=== PATIENT | female | born 1975 | race Caucasian/White ===

== ENCOUNTER 2022-04-02 15:20 | Emergency (ER) | payer OTHER, MEDICARE, MEDICAID, SELFPAY ==
[2022-04-02] VITALS (23 sets, daily range): BP systolic 96–116; BP diastolic 63–83; PULSE 71–95; RESP 11–19; TEMP 36.6; O2SAT 94–100
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
--- NOTE | ~2022-04-02 | XR_ITS ---
EXAMINATION: XR chest 2V DATE: 04/02/2022 16:11 INDICATION: Chest pain TECHNIQUE: AP and lateral views of the chest are obtained. COMPARISON: None available FINDINGS: The lungs are free of acute opacities. No pleural effusion or pneumothorax. The cardiomedia stinal silhouette is normal. There is mild thoracic spondylosis. Surgical clips in the right upper qu adrant are likely from prior cholecystectomy. IMPRESSION: 1. No acute cardiopulmonary abnormality. Reviewed, dictated and finalized at location A.
--- NOTE | 2022-04-02 15:22 | ECG_ITS ---
Measurements Intervals [place] Rate: 85 P: 48 HI: 165 QRS: 17 QRSD: 90 T: 48 QT: 365 QTc: 435 Interpretive Statements SINUS RHYTHM NO PREVIOUS ECG AVAILABLE FOR COMPARISON Electronically Signed On 04-03-2022 13:31:21 CDT by Analy Goode M.D.
[2022-04-02 15:43] LABS: Basophils Percent Auto 0.3 % (0.2-1.2); Eosinophils Absolute Auto 0.1 K/mm3 (0-0.3); Eosinophils Percent Auto 1.1 % (0-4.4); Hematocrit 35.9 % (37.0-47.0); Hemoglobin 11.9 g/dL (12.0-15.0); Immature Granulocyte Absolute 0.03 K/mm3 (0.00-0.031); Immature Granulocyte Percent A 0.3 % (0-0.5); Lymphocytes Absolute Auto 3.09 K/mm3 (0.9-3.2); Lymphocytes Percent Auto 31.5 % (18.3-44.2); Mean Corpuscular HGB Conc 33.1 g/dl (32-36); Mean Corpuscular Volume 93.5 fl (80-100); Mean Platelet Volume 9.5 fl (7.4-10.4); Monocytes Absolute Auto 0.5 K/mm3 (0.1-0.6); Monocytes Percent Auto 5.4 % (2.6-8.5); Neutrophils Percent Auto 61.4 % (45.5-73.1); Platelet Count Result 268 k/mm3 (150-375); Red Blood Count 3.84 M/mm3 (4.2-5.4); Red Cell Distribution Width 12.9 % (11.5-14.5); White Blood Count 9.8 K/mm3 (4.5-10.0)
[2022-04-02 15:54] LABS: Alanine Aminotransferase 12 U/L (6-35); Albumin Level 4.3 g/dL (3.5-5.1); Alkaline Phosphatase 35 U/L (38-126); Anion Gap 9 mmol/L (8-16); Aspartate Amino Transferase 23 U/L (14-36); Bilirubin,Total 0.4 mg/dL (0.2-1.3); Blood Urea Nitrogen 14 mg/dL (7-17); Calcium 8.8 mg/dL (8.4-10.2); Carbon Dioxide 26 mmol/L (22-30); Chloride 102 mmol/L (98-107); Estimated CRCL calculation 66 ml/min; Estimated Glomerular Filt Rate > 60; Glucose 87 mg/dL (65-110); Lipase 63 U/L (23-300); Potassium 3.7 mmol/L (3.4-5.0); Sodium 137 mmol/L (137-145)
[2022-04-02 15:55] LABS: Partial Thromboplastin Time 28.5 SECONDS (22.3-36.8); Prothrombin Time 12.6 Seconds (11.1-14.7)
[2022-04-02 16:05] LABS: Troponin I < 0.012 ng/mL (0.000-0.034)
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
[2022-04-02] MEDS: HYDROmorphone HCL INJ (*CRX) 1 MG/ML SYR 0.5 MG IV PUSH (16:32)
[2022-04-02 18:59] LABS: Troponin I < 0.012 ng/mL (0.000-0.034)
== END 2022-04-02 20:17 | disposition home or self-care (01) ==
PROVIDERS: Emergency Provider Emergency Medicine
DX: R07.89 Other chest pain (principal); F17.210 Nicotine dependence, cigarettes, uncomplicated; K42.9 Umbilical hernia without obstruction or gangrene; V49.40XA Driver injured in collision with unspecified motor vehicles in traffic accident, initial encounter
CPT/HCPCS: 36415; 71046; 71275; 74174; 80053; 83690; 84484; 85025; 85610; 85730; 93005; 96374; 99284; J1170; Q9967

== ENCOUNTER 2025-04-09 15:42 | Outpatient (CLI) | payer MEDICARE, MEDICAID, SELFPAY ==
--- OUTSIDE RECORDS SUMMARY | 2001-03-07 11:30 | XMS_ITS | Continuity of Care Document ---
Author Organization [facility] Address [address] [place] [address] Phone Care Team Providers Care Host/Hostess Restaurant Name Role Phone Buffy Boo Unavailable Unavailable Advance Directives Directive Yes / No Effective Date File Name No Information Encounters Encounter Description Practice Location Reason(s) For Visit Diagnoses Date Provider Providers Copied on Encounter [facility], [address] [place] [address] [address], [place], [place], [id number], [place] tel:[phone] [address] [facility] No Information [address] , [address], [place], [address], [place]. tel:[phone] Family History Family Member Type Diagnosis Age At Onset No Information Payers Payer name Insurance type Covered green party ID Authoriza tion(s) No Information Social History Type Description Quantity Date Captured Comments Sex Female Smoking Status No Information Chief Complaint And Reason For Visit No Information Reason For Referral Reason For Referral No Information History Of Present Illness Encounter Date Complaint History Of Prese nt Illness No Information Functional Status Date Functional Assessmen t No Information Instructions Date Instruction Additional Infor mation No Information Assessments Type Assessment Date No Information Patient Care Teams Name Effective Dates (start - stop) Status Members No Information
--- NOTE | ~2025-04-09 | XR_ITS ---
XR thoracic spine 2V 04/09/2025 16:21 Indication: Back pain Procedure: 2 views thoracic spine Comparison: No prior studies for comparison. Findings: T1 not well visualized on the lateral view. Normal thoracic alignment. Vertebral body heights are maintained. No paraspinal soft tissue abnormality. Pedicles intact. Surrounding osseous structures are unremarkable. Impression: 1: No significant abnormality of the thoracic spine. Reviewed, dictated and finalized at location O. Impression: 1: No significant abnormality of the thoracic spine.
--- NOTE | ~2025-04-09 | XR_ITS ---
XR_[id number]_CR 04/09/2025 16:21 Indication: Cervical, thoracic and lumbar radiculopathy Procedure: 3 views cervical spine Comparison: No prior studies for comparison. Findings: Vertebral body and disc heights are preserved. No prevertebral soft tissue abnormality. Lung apices are normal. Odontoid process is normal. No fracture, subluxation or dislocation. Impression: 1: No significant abnormality of the cervical spine. Reviewed, dictated and finalized at location O. Impression: 1: No significant abnormality of the cervical spine.
--- NOTE | ~2025-04-09 | XR_ITS ---
XR lumbar spine 2-3V 04/09/2025 16:21 Indication: Back pain. Radiculopathy. Procedure: 3 views lumbar spine Comparison: No prior studies for comparison. Findings: Vertebral body and disc heights are preserved. No fracture, subluxation or dislocation. No evidence for spondylolysis or spondylolisthesis. Sacral foramen are symmetric. There are cholecystectomy clips. Impression: 1: No significant abnormality of the lumbar spine. Reviewed, dictated and finalized at location O. Impression: 1: No significant abnormality of the lumbar spine.
--- OUTSIDE RECORDS SUMMARY | 2025-04-09 15:49 | XMS_ITS | Clinical Summary ---
Author Organization [facility] Address [address] [place] [address] Care Team Providers Care Hvac Controls Technician Name Role Phone Unknown, Provider Primary Care Provider Unavaila ble Source Comments [facility],non-owned Affiliates and Associated Physician Practices is amultiple site organization consisting of ambulatory clinics and hospital sitesin [place], [place], [place] and [place]. This disclosure is being madepursuant to the Care Everywhere program and may not contain all information available regarding this patient. 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 Gender Identity Not on file Sexual Orientation Not on file Last Filed Vital Signs Vital Sign Reading Time Taken Comments Blood Pressure 117/75 01/13/2024 2:49 PM CDT Pulse 95 01/13/2024 2:49 PM CDT Temperature 37.3 C (99.1 F) 01/13/2024 2:49 PM CDT Respiratory Rate 16 01/13/2024 2:49 PM CDT Oxygen Saturation 100% 01/13/2024 2:49 PM CDT Inhaled Oxygen Concentration - - Weight 56.7 kg (125 lb) 01/13/2024 2:49 PM CDT Height 154.9 cm (5' 1) 01/13/2024 2:49 PM CDT Body Mass Index 23.62 01/13/2024 2:49 PM CDT Plan of Treatment Health Maintenance Due Date Last Done Comments COLOGUARD (AGES 45-75) - COL ON CA SCREENING 1975 COLON MONITORING 1975 COLONOSCOPY - COLON CA SCREENING 1975 CT COLONOGRAPHY - COLON CA SCREENING 1975 Colorectal Cancer Screening 1975 FIT - COLON CA SCREENING 1975 FLEX SIG - COLON CA SCREENING 1975 MAMMOGRAM 1975 MEDICARE AWV 12 MONTHS 1975 HIV SCREENING 1990 HEPATITIS C SCREENING 01/25/1993 DTAP/TDAP/TD VACCINES (1 - Tdap) 1994 HEPATITIS B VACCINE (1 of 3 - 19+ 3-dose series) 1994 PAP SMEAR 01/31/1996 COVID-19 VACCINE (3 - 2023-2 5 season) 2024 11/25/2020, 10/28/2020 DEPRESSION SCREENING 08/15/2024 PNEUMOCOCCAL VACCINE 50+ (1 of 1 - PCV) 2025 ZOSTER VACCINE (1 of 2) 2025 INFLUENZA VACCINE (#1) 2025 07/21/2018 LIPID TESTING 04/15/2026 04/15/2021 HIB VACCINE Aged Out No longer eligi ble based on patient's age to complete this topic HPV VACCINE Aged Out No longer eligi ble based on patient's age to complete this topic MENINGOCOCCAL (Group B) VACCINE SHARED DECISION-MAKING Aged Out No longer eligible based on patient's age to complete this topic MENINGOCOCCAL GROUPS A/C/Y/W VACCINE Aged Out No longer eligible b ased on patient's age to complete this topic Procedures Procedure Name Priority Date/Time Associated Diagnosis Comments LIPID PROFILE Routine 04/15/2021 4:43 PM CDT Type 2 diabetes mellitus with other specified complication, unspecified whether intermediate insulin use from Last 3 Months or Most Recently Relevant to Health Maintenance Results * (ABNORMAL) LIPID PROFILE (04/15/2021 4:43 PM CDT) Cholesterol Total 130 0 - 200 mg/dL 04/15/2021 5:15 PM CDT [facility] Triglycerides 141 30 - 150 mg/dL 04/15/2021 5:15 PM CDT [facility] HDL 31(L) 40 - 60 mg/dL 04/15/2021 5:15 PM CDT [facility] Chol HDL Ratio 4.2 0 - 4.5 % 04/15/2021 5:15 PM CDT [facility] LDL Calculated 71 0-100 mg/dL mg/dL 04/15/2021 5:15 PM CDT [facility] VLDL Calculated 28 0-30 mg/dL mg/dL 04/15/2021 5:15 PM CDT [facility] Non HDL Cholesterol 99 0-120 mg/dL mg/dL 04/15/2021 5:15 PM CDT [facility] Blood BLOOD SPECIMEN / Unknown Lab Venipuncture / Unknown 04/15/2021 4:43 PM CDT 04/15/2021 4:43 PM CDT Navin Dawn [employer] REPRESENTATIVE-ANNUAL GIVING OFFICER LAB - CHEMISTRY ORDERAB LES Final Result [facility] [address] [place] [address] from Last 3 Months or Most Recently Relevant to Health Maintenance Insurance MEDICARE MEDICAID - [place] MEDICARE MED[place]ID [place] [employer] Care Teams Hvac Controls Technician Relationship Specialty Start Date End Date Unknown, Provider PCP - General 04/15/21
--- OUTSIDE RECORDS SUMMARY | 2025-04-09 15:50 | XMS_ITS | Patient Health Record ---
Author Organization [facility] [employer] Address [address] [facility] [address] [place] [address] Care Team Providers Care Linen Room Attendant Name Role Phone Enrrique Mcfadden Unavailable [phone] Jennifer Prado Unavailable [phone] Allergies Allergen (clinical drug ingredient) Drug/Non Drug Allergy documented on EMR Reaction Allergy Type Onset Date Status diphenhydramine Benadryl Unknown Drug Allergy 11/04/2021 Active Rocephin Unknown Drug Allergy 11/04/2021 Active naproxen Naproxen Unknown Drug Allergy Active tramadol Tramadol Unknown Drug Allergy Active Reason For Referral No Information Medications Medication SIG (Take, Route, Frequency, Duration) Notes Start Date End Date Status medroxyPROGESTERone Acetate 5 MG Tablet Oral; Duration: 7 Days Active HYDROcodone-Acetaminophen 5- 325 MG Tablet TAKE 1 TABLET BY MOUTH EVERY 6 HOURS NEEDED Oral; Duration: 2 Days Active Fanapt 4 mg Tablet TAKE 1 TABLET BY MOUTH DAILY; Duration: 28 Active Trulicity 0.75 MG/0.5ML Solution Pen-injector Subcutaneous; Duration: 28 Days Active QUEtiapine Fumarate 100 mg Tablet TAKE 1 TABLET BY MOUTH AT BEDTIME; Duration: 28 Active Sertraline HCl 100 mg Tablet TAKE 1 TABL ET BY MOUTH DAILY; Duration: 28 Active traZODone HCl 100 mg Tablet TAKE 1 TABLE T BY MOUTH AT BEDTIME; Duration: 28 Active Fenofibrate 160 MG Tablet Oral; Duration : 28 Days Active Sertraline HCl 25 mg Tablet TAKE 1 TABLE T BY MOUTH DAILY WITH 100MG TABLET; Duration: 28 Active Albuterol Sulfate HFA 108 (9 0 Base) MCG/ACT Aerosol Solution Inhalation; Duration: 30 Days Active Atorvastatin Calcium 10 MG Tablet Oral; Duration: 28 Days Active Levothyroxine Sodium 50 MCG Tablet Oral; Duration: 28 Days Active Immunizations Vaccine Route Administration Date Status Comme nts Influenza virus vaccine, quadrivalent (IIV4), split virus, 0.25 mL dosage Unknown 07/21/2018 Administered Pfizer Biontech Covid-19 Vac cine 2nd dose Unknown 10/28/2020 Administered Pfizer Biontech Covid-19 Vac cine 2nd dose Unknown 11/25/2020 Administered Social History Tobacco Use: Social History Observation Description Date Details (start date - stop date) Current Smoker 01/24/1984 - NA Sex Assigned At : Social History Observation Description Sex Assigned At Female Social History Tobacco Use: Social Info Question Answer Notes Tobacco Control (Standard) Tobacco use: Current smoker When did you start smoking? 01/24/1984 How often do you smoke cigarettes? Every day How many cigarettes a day do you smoke? 6-10 How soon after you wake up do you smoke your first cigarette? Within 5 minutes Are you interested in quitting? 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 Active confirmed Problem Hypothyroidism (85561645) Hypothyroidism, unspecified type (E03.9) 2019 Active confirmed Problem COPD - Chronic obstructive pulmonary disease (44342561) COPD (chronic obstructive pulmonary disease) (J44.9) 2021 Active confirmed Problem Type II diabetes mellitus without complication (620232259) Type 2 diabetes mellitus without complication, without long-term current use of insulin (E11.9) 2019 Active confirmed Problem Hypertriglyceridemia (264265964) Hypertriglyceridemia (E78.1) 2019 Active confirmed Problem Rheumatoid arthritis (93918567) Rheumatoid arthritis, involving unspecified site, unspecified rheumatoid factor presence (M06.9) 2019 Active confirmed Vital Signs Heart Rate 94 /min 12/12/2024 Height-cm 152.40 cm 12/12/2024 Blood pressure diastolic 67 mm Hg 12/12/2024 Weight-kg 54.89 kg 12/12/2024 Height 60.00 in 12/12/2024 Blood pressure systolic 101 mm Hg 12/12/2024 Weight 121 lbs 12/12/2024 BMI 23.63 kg/m2 12/12/2024 Encounters Encounter Location Date Provider Diagnosis [address] [address] 06/04/2024 Jennifer Prado [address] [address] 07/30/2024 Jennifer Prado [address] [address] 04/09/2025 Jennifer Prado Post-traumatic stres s disorder, unspecified F43.10 ; Major depressive disorder, recurrent, severe with psychotic symptoms F33.3 and Generalized anxiety disorder F41.[address] [address] 06/04/2024 Enrrique Lesa Generalized anxiety disorder F41.1 ; Major depressive disorder, recurrent, severe with psychotic symptoms F33.3 ; Post-traumatic stress disorder, unspecified F43.10 and Nightmare disorder F51.[address] [address] 07/30/2024 Enrrique Lesa [place] [address] [address] 09/14/2024 Enrrique Lesa Major depressive dis order, recurrent, severe with psychotic symptoms F33.3 ; Generalized anxiety disorder F41.1 ; Hypertriglyceridemia E78.1 ; Rheumatoid arthritis, involving unspecified site, unspecified rheumatoid factor presence M06.9 ; Hypothyroidism, unspecified type E03.9 ; Type 2 diabetes mellitus without complication, without long-term current use of insulin E11.9 ; COPD (chronic obstructive pulmonary disease) J44.9 and Post-traumatic stress disorder, unspecified F43.[address] [address] 09/25/2024 Jennifer Prado Post-traumatic stres s disorder, unspecified F43.10 ; Nightmare disorder F51.5 ; Major depressive disorder, recurrent, severe with psychotic symptoms F33.3 and Generalized anxiety disorder F41.[address] [address] 11/09/2024 Jennifer Prado [address] [address] 11/09/2024 Enrrique Mcfadden [address] [address] 12/12/2024 Enrrique Mcfadden Major depressive dis order, recurrent, severe with psychotic symptoms F33.3 ; Generalized anxiety disorder F41.1 ; Hypertriglyceridemia E78.1 ; Rheumatoid arthritis, involving unspecified site, unspecified rheumatoid factor presence M06.9 ; Hypothyroidism, unspecified type E03.9 ; Type 2 diabetes mellitus without complication, without long-term current use of insulin E11.9 ; COPD (chronic obstructive pulmonary disease) J44.9 ; Post-traumatic stress disorder, unspecified F43.10 ; Encounter for screening for depression Z13.31 ; Encounter for screening for cardiovascular disorders Z13.6 and Nicotine use Z72.[address] [address] 12/26/2024 Enrrique Mcfadden [address] [address] 02/06/2025 Enrrique Mcfadden [address] [address] 02/13/2025 Jennifer Prado [address] [address] 03/13/2025 Enrrique Mcfadden Assessments Encounter Date Diagnosis (ICD Code) Assessment Notes Treatment Notes Treatment Clinical Notes Section Notes 09/14/2024 Hypothyroidism, unspecified type (ICD-10 - E03.9) 09/14/2024 COPD (chronic obstructive pulmonary disease) (ICD-10 - J44.9) 09/14/2024 Type 2 diabetes mellitus without complication, without long-term current use of insulin (ICD-10 - E11.9) 09/14/2024 Hypertriglyceridemia (ICD-10 - E78.1) 09/14/2024 Rheumatoid arthritis , involving unspecified site, unspecified rheumatoid factor presence (ICD-10 - M06.9) 12/12/2024 Major depressive disorder, recurrent, severe with psychotic symptoms (ICD-10 - F33.3) 12/12/2024 Generalized anxiety disorder (ICD-10 - F41.1) 06/04/2024 Generalized anxiety disorder (ICD-10 - F41.1) Generalized Anxiety Disorder: Care Instructions material was published Visual Hallucinations and Worsening Symptoms - Assessment: Patient reports seeing faces in artwork and patterns in bathroom tiles. - Plan: - Increase Fanapt to 8 mg daily - Continue monitoring for triggers and worsening symptoms - Follow-up in one month to assess response to increased Fanapt dosage Auditory Hallucinations and Increased Stress - Assessment: Patient reports voices are getting louder again. - Plan: - Continue sertraline at 100 mg daily for anxiety and depression - Encourage patient to seek support from friends, family, or support groups - Consider referral to a therapist for additional coping strategies Insomnia - Plan: - Continue trazodone at 100 mg nightly for sleep - Encourage patient to practice good sleep hygiene Uterine Mass and Surgical Anxiety - Assessment: Patient expresses fear of surgery due to mother's during gallbladder surgery. - Plan: - Encourage patient to discuss surgical options and risks with their track laying equipment operator - Address patient's concerns about surgery and provide reassurance - Consider referral to a therapist for pre-surgical anxiety management Anger Management and Risk of Aggression - Assessment: Patient reports no physical altercations in over a year. Patient expresses concern about potential for anger and violence when symptoms worsen. - Plan: - Encourage patient to continue monitoring for triggers and utilize coping strategies - Consider referral to a therapist for additional anger management techniques - Follow-up in one month to assess patient's emotional state and risk of aggression 09/14/2024 Major depressive disorder, recurrent, severe with psychotic symptoms (ICD-10 - F33.3) 09/14/2024 Generalized anxiety disorder (ICD-10 - F41.1) 04/09/2025 Major depressive disorder, recurrent, severe with psychotic symptoms (ICD-10 - F33.3) 04/09/2025 Post-traumatic stres s disorder, unspecified (ICD-10 - F43.10) 09/25/2024 Post-traumatic stres s disorder, unspecified (ICD-10 - F43.10) 09/25/2024 Nightmare disorder (ICD-10 - F51.5) 09/25/2024 Major depressive disorder, recurrent, severe with psychotic symptoms (ICD-10 - F33.3) 04/09/2025 Generalized anxiety disorder (ICD-10 - F41.1) 12/12/2024 Hypertriglyceridemia (ICD-10 - E78.1) 09/14/2024 Post-traumatic stres s disorder, unspecified (ICD-10 - F43.10) 06/04/2024 Major depressive disorder, recurrent, severe with psychotic symptoms (ICD-10 - F33.3) Visual Hallucinations and Worsening Symptoms - Assessment: Patient reports seeing faces in artwork and patterns in bathroom tiles. - Plan: - Increase Fanapt to 8 mg daily - Continue monitoring for triggers and worsening symptoms - Follow-up in one month to assess response to increased Fanapt dosage Auditory Hallucinations and Increased Stress - Assessment: Patient reports voices are getting louder again. - Plan: - Continue sertraline at 100 mg daily for anxiety and depression - Encourage patient to seek support from friends, family, or support groups - Consider referral to a therapist for additional coping strategies Insomnia - Plan: - Continue trazodone at 100 mg nightly for sleep - Encourage patient to practice good sleep hygiene Uterine Mass and Surgical Anxiety - Assessment: Patient expresses fear of surgery due to mother's during gallbladder surgery. - Plan: - Encourage patient to discuss surgical options and risks with their track laying equipment operator - Address patient's concerns about surgery and provide reassurance - Consider referral to a therapist for pre-surgical anxiety management Anger Management and Risk of Aggression - Assessment: Patient reports no physical altercations in over a year. Patient expresses concern about potential for anger and violence when symptoms worsen. - Plan: - Encourage patient to continue monitoring for triggers and utilize coping strategies - Consider referral to a therapist for additional anger management techniques - Follow-up in one month to assess patient's emotional state and risk of aggression 06/04/2024 Post-traumatic stres s disorder, unspecified (ICD-10 - F43.10) Visual Hallucinations and Worsening Symptoms - Assessment: Patient reports seeing faces in artwork and patterns in bathroom tiles. - Plan: - Increase Fanapt to 8 mg daily - Continue monitoring for triggers and worsening symptoms - Follow-up in one month to assess response to increased Fanapt dosage Auditory Hallucinations and Increased Stress - Assessment: Patient reports voices are getting louder again. - Plan: - Continue sertraline at 100 mg daily for anxiety and depression - Encourage patient to seek support from friends, family, or support groups - Consider referral to a therapist for additional coping strategies Insomnia - Plan: - Continue trazodone at 100 mg nightly for sleep - Encourage patient to practice good sleep hygiene Uterine Mass and Surgical Anxiety - Assessment: Patient expresses fear of surgery due to mother's during gallbladder surgery. - Plan: - Encourage patient to discuss surgical options and risks with their track laying equipment operator - Address patient's concerns about surgery and provide reassurance - Consider referral to a therapist for pre-surgical anxiety management Anger Management and Risk of Aggression - Assessment: Patient reports no physical altercations in over a year. Patient expresses concern about potential for anger and violence when symptoms worsen. - Plan: - Encourage patient to continue monitoring for triggers and utilize coping strategies - Consider referral to a therapist for additional anger management techniques - Follow-up in one month to assess patient's emotional state and risk of aggression 12/12/2024 Rheumatoid arthritis , involving unspecified site, unspecified rheumatoid factor presence (ICD-10 - M06.9) 09/25/2024 Generalized anxiety disorder (ICD-10 - F41.1) 06/04/2024 Nightmare disorder (ICD-10 - F51.5) Visual Hallucinations and Worsening Symptoms - Assessment: Patient reports seeing faces in artwork and patterns in bathroom tiles. - Plan: - Increase Fanapt to 8 mg daily - Continue monitoring for triggers and worsening symptoms - Follow-up in one month to assess response to increased Fanapt dosage Auditory Hallucinations and Increased Stress - Assessment: Patient reports voices are getting louder again. - Plan: - Continue sertraline at 100 mg daily for anxiety and depression - Encourage patient to seek support from friends, family, or support groups - Consider referral to a therapist for additional coping strategies Insomnia - Plan: - Continue trazodone at 100 mg nightly for sleep - Encourage patient to practice good sleep hygiene Uterine Mass and Surgical Anxiety - Assessment: Patient expresses fear of surgery due to mother's during gallbladder surgery. - Plan: - Encourage patient to discuss surgical options and risks with their track laying equipment operator - Address patient's concerns about surgery and provide reassurance - Consider referral to a therapist for pre-surgical anxiety management Anger Management and Risk of Aggression - Assessment: Patient reports no physical altercations in over a year. Patient expresses concern about potential for anger and violence when symptoms worsen. - Plan: - Encourage patient to continue monitoring for triggers and utilize coping strategies - Consider referral to a therapist for additional anger management techniques - Follow-up in one month to assess patient's emotional state and risk of aggression 12/12/2024 Hypothyroidism, unspecified type (ICD-10 - E03.9) 12/12/2024 Type 2 diabetes mellitus without complication, without long-term current use of insulin (ICD-10 - E11.9) 12/12/2024 COPD (chronic obstructive pulmonary disease) (ICD-10 - J44.9) 12/12/2024 Post-traumatic stres s disorder, unspecified (ICD-10 - F43.10) 12/12/2024 Encounter for screening for depression (ICD-10 - Z13.31) 12/12/2024 Encounter for screening for cardiovascular disorders (ICD-10 - Z13.6) 12/12/2024 Nicotine use (ICD-10 - Z72.0) 09/14/2024 Other Anxiety and Stress - Assessment: Patient experiencing significant anxiety and stress due to multiple personal and family issues, including godchild's health, relationship issues, and legal matters involving sister's daughter. - Plan: - Continue sertraline for anxiety management. - Increase trazodone dosage from 100 mg to 125 mg (100 mg tablet + 25 mg extra). - Encourage scheduling an appointment with therapistJennifer. - Reevaluate in 2 months. Insomnia - Assessment: Patient currently taking trazodone for sleep. - Plan: - Monitor effectiveness of increased trazodone dosage (125 mg) in improving sleep quality. Psychotic Symptoms - Assessment: Patient taking Fanapt 4 mg once daily at night. Reported increased auditory hallucinations and numbness at 8 mg. - Plan: - Continue current dosage of 4 mg Fanapt. - Monitor for changes in symptoms. - Schedule follow-up appointment in 2 months to assess medication effectiveness and side effects. Medication Management - Assessment: Patient obtaining medications from [facility] pharmacy. - Plan: - Send updated prescriptions for trazodone and Fanapt to [facility] pharmacy. - Encourage regular communication with healthcare providers and pharmacy regarding refills and concerns. Social Support - Assessment: Patient actively involved in supporting friends and family members, including caring for hospitalized godchild, supporting friend with alcoholic relapse, and helping elderly friends. - Plan: - Encourage continued social support activities. - Recommend joining a support group or engaging in community resources for stress and anxiety management. Follow-up - Plan: - Schedule follow-up appointment in 2 months. - Encourage patient to reach out if experiencing significant changes in mental health or needing additional support between appointments. Financial Concerns - Assessment: Patient using savings to help pay for legal fees related to sister's custody kim. - Plan: - Monitor impact of financial stress on overall mental health and ability to access care or medications. 12/12/2024 Checo Cevallos presents with exacerbation of anxiety, sleep disturbances, and PTSD symptoms for the past 3 days, reporting persistent shaking and night terrors. Anxiety Disorder with PTSD symptoms Assessment: Patient reports significant increase in anxiety symptoms over the past 3 days, including persistent shaking, sleep disturbances, and night terrors. Recent stressors include family conflict during , car issues, and increased rent. Patient has a history of PTSD, with current exacerbation of symptoms including flashbacks and nightmares. Current medication regimen includes phenelzine and trazodone, but patient reports these may no longer be effective in managing symptoms. Plan: - Start quetiapine 100 mg PO at bedtime for anxiety and sleep - Informed patient about dose range (25-900 mg) and option to halve dose if too sedating - Discussed potential benefits for anxiety, sleep, and PTSD symptoms - Continue trazodone (current dose not specified) for sleep - Add clonidine (dose not specified) for anxiety and sleep - Discontinue phenelzine (patient reports it may no longer be effective) - Follow-up telehealth visit in 2 weeks to assess response to medication changes Insomnia Assessment: Patient reports worsening sleep patterns despite long-term use of trazodone (over 10 years). Current sleep disturbances include frequent awakenings and difficulty maintaining sleep. Sleep issues appear to be exacerbated by anxiety and PTSD symptoms. Plan: - Initiate quetiapine 100 mg PO at bedtime (as mentioned in anxiety management plan) - Continue trazodone (current dose not specified) for sleep - Add clonidine (dose not specified) for additional sleep support - Reassess sleep quality at 2-week follow-up Disclaimer: This note has been transcribed using speech recognition software and serves as a reflection of the patient's visit. While efforts have been made to ensure accuracy, there may be errors, including outdoor studies professor inaccuracies and misspellings of medication names. This document should not be considered a verbatim record, and any discrepancies should be verified with the provider. Plan Of Treatment Next Appt Details Provider Name:Jennifer Prado, 05/09/2025 01:00:00 PM, [address], [facility] [address], [place], [address], Provider Name:Enrrique Mcfadden , 05/22/2025 02:30:00 PM, [address], [facility] [address], [place], [address], Insurance Providers Payer Name Payer Address Payer Phone Subscriber Number Group Number Insured Name Patient Relationship to Insured Coverage Start Date Coverage End Date bs-Co Ppo [address] [place] [address] [id number] [employer]E Spouse - patient is the spouse of the insured Medicare-I l Medicare [address] [place] [address] [id number] CORKY MANE Self - patient is the insured Medicaid-I l Medicaid [address] [address] [place] [address] [id number] CORKY MANE Self - patient is the insured Medical (General) History Medical History History ICD Code Problems: Cannabis dependence in remissi on Generalized anxiety disorder Morbid obesity Nicotine dependence Posttraumatic stress disorder Severe recurrent major depression with p sychotic features , Surgical History Surgery Date(Month/Year) Removal of gallbladder (85231) Tonsilectomy/adenoids Appendectomy (10005)
--- OUTSIDE RECORDS SUMMARY | 2025-04-09 15:50 | XMS_ITS | Clinical Summary ---
Author Organization [facility] Address [address] [place] [address] Care Team Providers Care Transfer Engineer Name Role Phone Ebony Hartley MD Primary Care Provider Allergies Active Allergy Reactions Criticality Noted Date Comments Ceftriaxone Hives,Urticaria High 01/13/2024 Diphenhydramine Other (See comments) High 01/13/2024 Heart stops per pt Naproxen Vomiting Low 01/13/2024 Tramadol Hives,Urticaria Medium 01/13/2024 Medications albuterol HFA (PROVENTIL HFA,VENTOLIN HFA,PROAIR HFA) 90 mcg/actuation inhaler INHALE 1 PUFF EVERY FOUR HOURS NEEDED 2 Active atorvastatin (LIPITOR) 10 mg tablet Take 1 tablet (10 mg total) by mouth daily Active Trulicity 0.75 mg/0.5 mL pen injector INJECT 0.75MG SUBCUTANEOUSLY EVERY WEEK 4 Active fenofibrate (TRIGLIDE) 160 mg tablet Take 1 tablet (160 mg total) by mouth daily Active fluticasone-um eclidin-vilant er (TRELEGY ELLIPTA) 100-62.5-25 mcg inhaler 1 puff daily Activ e Fanapt 6 mg tablet Take 1 tablet every day by oral route in the evening for 28 days. Active levothyroxine (SYNTHROID) 50 mcg tablet TAKE 1 TABLET BY MOUTH IN THE MORNING ON EMPTY STOMACH 4 Active sertraline (ZOLOFT) 100 mg tablet Take 2 tablets (200 mg total) by mouth nightly Active traMADoL (ULTRAM) 50 mg tablet one to two tabs po tid prn pain Active traZODone (DESYREL) 100 mg tablet Take 1 tablet (100 mg total) by mouth nightly Active Active Problems No known active problems Surgical History Surgery Date Site/Laterality Comments DILATION AND CURETTAGE OF UTERUS TUBAL LIGATION Family History Medical History Relation Name Comments Ovarian cancer Mother Breast cancer Neg Hx Relation Name Status Comments Mother Social History Tobacco Use Types Packs/Day Years Used Date Smoking Tobacco: Never Assessed Comments No Sex and Gender Information Value Date Recorded Sex Assigned at Not on file Legal Sex Female 6:27 PM [employer] Gender Identity Not on file Sexual Orientation Not on file Obstetrics History Para Term AB IAB SAB Ectopic Multiple Livin g Live Births 11 3 8 8 Date Outcome GA Total Labor Labor//3rd Weight Sex Type Anes PTL Felicita A1 A5 Name Clin Para Para Para SAB SAB SAB SAB SAB SAB SAB SAB Last Filed Vital Signs Vital Sign Reading Time Taken Comments Blood Pressure 112/68 02/01/2024 1:16 PM CDT Pulse - - Temperature - - Respiratory Rate - - Oxygen Saturation - - Inhaled Oxygen Concentration - - Weight 59 kg (130 lb) 02/01/2024 1:16 PM CDT Height 156.2 cm (5' 1.5) 02/01/2024 1:16 PM CDT Body Mass Index 24.17 02/01/2024 1:16 PM CDT Plan of Treatment Health Maintenance Due Date Last Done Comments Breast Cancer Screening-Mammogram 1975 Cervical Cancer Screening 1975 Colon Cancer Screening-Colonoscopy 1975 Depression Screening 1975 Hepatitis C Screening 1975 DTaP/Tdap/Td Vaccine (1 - Tdap) 1986 Regular Well Visit/Exam 18-64 1993 Covid-19 Vaccine (3 2023-2 5 season) 2024 11/25/2020, 10/28/2020 Zoster Vaccine (1 of 2) 2025 Influenza Vaccine (#1) 2025 07/21/2018 Hepatitis B Screening Completed 01/03/2018 Pneumococcal vaccine <65 Aged Out No longer eligible based on patient's age to complete this topic Insurance [facility] CHOICE PLUS ACCESS CHOICE IDPA Care Teams Transfer Engineer Relationship Specialty Start Date End Date Ebony Hartley MD [address] [place] [address] [phone] PCP - General Internal Medicine 03/14/24
--- OUTSIDE RECORDS SUMMARY | 2025-04-09 15:50 | XMS_ITS | Patient Health Record ---
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 Role Phone Nereyda Aydeharsha Primary Care Provider Allergies Allergen (clinical drug ingredient) Drug/Non Drug Allergy documented on EMR Reaction Allergy Type Onset Date Status Acetaminophen-Code ine #3 Rash Drug Allergy Active diphenhydramine Benadryl stops heart Drug Allergy Active Rocephin rash Drug Allergy Active Reason For Referral No Information Medications Medication SIG (Take, Route, Frequency, Duration) Notes Start Date End Date Status Macrobid 100 MG Capsule 1 capsule Orally BID; Duration: 7 days 10/07/2021 Active traZODone HCl 100 MG Tablet 1 tablet at bedtime Orally Once a day; Duration: 30 days Active Cyclobenzaprine HCl 5 mg Tablet TAKE 1 TABLET BY MOUTH AT BEDTIME NEEDED; Duration: 30 Active Triamcinolone Acetonide 0.1 % Cream 1 application Externally Two times a Week; Duration: 10 days 12/20/2019 Not-Taking traMADol HCl 50 MG Tablet 1 tablet as needed Orally Once a day 04/15/2021 Not-Taking traMADol HCl 50 MG Tablet 1 tablet as needed Orally Once a day; Duration: 14 days 04/17/2021 Not-Taking predniSONE 20 MG Tablet 3 tablet Orally Once a day; Duration: 5 days 03/10/2020 Not-Taking Protonix 20 MG Tablet Delayed Release 1 tablet Orally Once a day; Duration: 30 day(s) 12/20/2019 Not-Taking Cymbalta 30 MG Capsule Delayed Release Particles 1 capsule Orally Once a day at Bedtime Not-Taking Trulicity 0.75 MG/0.5ML Solution Pen-injector ADMINISTER 0.75 MG UNDER THE SKIN WEEKLY Subcutaneous Weekly; Duration: 28 days Active metFORMIN HCl ER 750 MG Tablet Extended Release 24 Hour 1 tablet with evening meal Orally Once a day; Duration: 30 day(s) 11/02/2019 Not-Taking Levothyroxine Sodium 50 MCG Tablet TAKE 1 TABLET BY MOUTH IN THE MORNING ON EMPTY STOMACH Orally Once a day; Duration: 90 days needs appt for more refills Active ProAir HFA 108 (90 Base) MCG/ACT Aerosol Solution 1 puff as needed Inhalation every 4 hrs; Duration: 30 days Active Atorvastatin Calcium 10 MG Tablet Take 1 tablet by mouth once daily; Duration: 90 days Active Sertraline HCl 100 mg Tablet TAKE 2 TABLETS BY MOUTH AT BEDTIME; Duration: 28 Active freestyle test strips 1 strip In-Vitro once daily; Duration: 90 days DX :E11.07/03/2020 Active Ventolin HFA 108 (90 Base) MCG/ACT Aerosol Solution 1 puff as needed Inhalation every 4 hrs; Duration: 30 days 05/17/2022 Active Macrobid 100 MG Capsule 1 capsule Orally twice daily; Duration: 7 days 10/05/2021 Not-Taking Trelegy Ellipta 100-62.5-25 MCG/ACT Aerosol Powder Breath Activated INHALE 1 PUFF DAILY; Duration: 30 Active Contour Lancets 1 lancet fingerstick once daily; Duration: 30 days DX: E11.07/03/2020 Active Contour Next EZ Test Strips Strip 1 strip fingerstick once daily; Duration: 30 days DX: E11.07/03/2020 Active Bydureon BCise 2 MG/0.85ML Auto-injector 2 mg Subcutaneous Weekly; Duration: 30 days 07/18/2020 Not-Taking FreeStyle Lancets none lancets 1 lancet finger once daily; Duration: 90 days DX: E11.07/03/2020 Active Fenofibrate 160 MG Tablet Take 1 tablet by mouth once daily; Duration: 90 days Active freestyle meter as directed fingerstick Daily; Duration: 365 days DX: E11.07/03/2020 Active diazePAM 10 MG Tablet 1/2 tablet as needed Orally Twice a day Active Fanapt 6 MG Tablet 1 tablet Orally At bedtime Active Immunizations Vaccine Route Administration Date Status Comme nts [facility] Group-19 Vac cine (FEDERAL STOCK) Unknown 10/28/2020 Administered Pfizer-BioNTech Covid-19 Vac cine (FEDERAL STOCK) Unknown 11/25/2020 Administered Social History Tobacco Use: Social History Observation Description Date Details (start date - stop date) Current Smoker NA - NA Social History Drugs/Alcohol: Social Info Question Answer Notes Alcohol Screen (Audit-C) Did you have a drink containing alcohol in the past year? No Points 0 Interpretation Negative DAST Total Score: 0 Interpretation: No problems reported Drugs Have you used drugs other than those for medical reasons in the past 12 months? No Caffeine Intake: more than 4 cups per day Tea Tobacco Use: Social Info Question Answer Notes Tobacco Use/Smoking Are you a current smoker How many cigarettes a day do you smoke? 11-20 Additional Details Category Social Info Options Details Miscellaneous: Exercise: none Self-Management Flu Shot 07/21/2018 Laboratory Testing 06/30/2020-, Urine MicroAlb, Lipid Panel-LDL:, A1C:, CMP, CBC Covid-19 Vaccine Pfizer-BioNTech Dose 1 Admnistered 10/28/2020, Pfizer BioNTech Dose 2 Administred 11/25/2020 Problems Problem Type SNOMED Code ICD Code Onset Dates Problem Status W/U Status Risk Notes Problem COPD - Chronic obstructive pulmonary disease (67074781) COPD (chronic obstructive pulmonary disease) (J44.9) Active confirmed Problem Hypertriglyceridemia (237211683) Hypertriglyceridemia (E78.1) Active confirmed Problem Pain in thoracic spine (226107092) Thoracic spine pain (M54.6) Active confirmed Problem Rheumatoid arthritis (83103512) Rheumatoid arthritis, involving unspecified site, unspecified rheumatoid factor presence (M06.9) Active confirmed Problem Urge incontinence of urine (21896119) Urge incontinence of urine (N39.41) Active confirmed Problem Hypothyroidism (27777270) Hypothyroidism, unspecified type (E03.9) Active confirmed Problem Dysphagia (01203242) Dysphagia, unspecified type (R13.10) Active confirmed Problem Atopic dermatitis (68169014) Atopic dermatitis, unspecified type (L20.9) Active confirmed Problem Type II diabetes mellitus without complication (168313993) Type 2 diabetes mellitus without complication, without long-term current use of insulin (E11.9) Active confirmed Problem Cervical arthritis (790672173) Cervical arthritis (M46.92) Active confirmed Problem Asthma without statu s asthmaticus (76682375) Asthma, unspecified asthma severity, unspecified whether complicated, unspecified whether persistent (J45.909) Active confirmed Plan Of Treatment No Information Insurance Providers Payer Name Payer Address Payer Phone Subscriber Number Group Number Insured Name Patient Relationship to Insured Coverage Start Date Coverage End Date [place] P[place] [address] [place] [address] [phone] [id number] Claritza Alvarez Self - patient is the insured 2 Medicare NGS [address] [place], [place] [id number] Claritza Alvarez Self - patient is the insured 8 Medicaid FQHC Second to [facility] [address] [place], [place] [id number] Claritza Alvarez Self - patient is the insured 8 Medicare Part B [address] [place], [place] [id number] Claritza Alvarez Self - patient is the insured 8 Medicare Nonbillable [address] [place], [place] [id number] Claritza Alvarez Self - patient is the insured 8 Medicaid Nonbillable [address] [place], [place] [id number] Claritza Alvarez Self - patient is the insured 8 Medicaid FFS [address] [place], [place] [id number] Claritza Alvarez Self - patient is the insured 0 Medical (General) History Medical History History ICD Code anxiety arthritis asthma depression rheumatoid arthritis thyroid disease 7 miscarriages Surgical History Surgery Date(Month/Year) gallbladder appendix 3 colonoscopies 6 sets of tubes
== END 2025-04-09 15:43 | disposition home or self-care (01) ==
PROVIDERS: PCP Internal Medicine Infectious Disease; Visit Provider Pain Medicine Interventional Pain Medicine
DX: M54.12 Radiculopathy, cervical region (principal); M54.14 Radiculopathy, thoracic region; M54.16 Radiculopathy, lumbar region
CPT/HCPCS: 72040; 72070; 72100